=== PATIENT | male | born 1935 | race Caucasian/White ===

== ENCOUNTER 2016-07-02 17:31 | Inpatient (IN) | payer MEDICARE, OTHER ==
[2016-07-02 18:54] LABS: Hematocrit 45 % (42-52); Mean Corpuscular HGB Conc 33 g/dl (31-36); Mean Corpuscular Hemoglobin 31 pg (27-31); Mean Corpuscular Volume 94 fL (80-94); Mean Platelet Volume 9 um3 (7.4-10.4); Red Blood Count 4.84 10^6/ul (4.0-5.4); Red Cell Distribution Width 13 % (10.5-15); White Blood Count 5.2 10^3/ul (3.5-10.8)
--- NOTE | 2016-07-02 19:04 | RAD ---
Indication: LEFT hip and leg pain post fall. Comparison: February 24, 2013 CT. Technique: AP and crosstable lateral views LEFT femur. AP pelvis and AP and crosstable lateral views LEFT hip. Report: Negative for pelvic fracture or joint diastases. The LEFT hip is normally located and demonstrates grossly preserved joint space. Lucencies through the LEFT greater trochanter appear new compared with the 2013 CT and are most consistent with mildly comminuted nondisplaced fracture. No definitive fracture plane extending inferomedial across the intratrochanteric region of the femur. Unremarkable femoral diaphysis and distal condyles. Normal articular alignment at the knee. Unremarkable soft tissue contours. IMPRESSION: The constellation of findings is highly suspicious for a grossly nondisplaced mildly comminuted fracture involving the greater trochanter of the LEFT femur.
[2016-07-02 19:09] LABS: ALT 12 U/L (7-52); AST 16 U/L (13-39); Albumin 3.7 g/dL (3.2-5.2); Alkaline Phosphatase 41 U/L (34-104); Anion Gap 3 mmol/L (2-11); BUN/Creatinine Ratio 19.2 (8-20); Blood Urea Nitrogen 14 mg/dL (6-24); C Reactive Protein < 1.00 mg/L (< 5.00); CO2 Carbon Dioxide 31 mmol/L (22-32); Calcium 9.4 mg/dL (8.6-10.3); Chloride 103 mmol/L (101-111); EGFR Non-African American 103.4 (>60); Globulin 2.4 g/dL (2-4); Glucose 85 mg/dL (70-100); Sodium 137 mmol/L (133-145); Total Protein 6.1 g/dL (6.4-8.9)
[2016-07-02] MEDS ORDERED: Magnesium Hydroxide LIQ* 30 ML UDC PO PRN (19:57)
[2016-07-02] MEDS ORDERED: Docusate CAP* 100 MG PO PRN (19:57)
[2016-07-02] MEDS ORDERED: Morphine INJ* 2 MG/ML 1 ML CARPUJECT IV PRN (19:57)
[2016-07-02] MEDS ORDERED: Al Hydrox/Mg Hydrox/Simet LIQ* 30 ML UDC PO PRN (19:57)
[2016-07-02] MEDS ORDERED: Senna TAB PO PRN (19:57)
--- NOTE | 2016-07-02 21:49 | ED ---
Brandyn Lin Rebecca, scribed for Dennis Crandall MD on 07/02/16 at 1804 . Lower Extremity - HPI Summary HPI Summary: Pt is an 81 y/o M who presents to ED c/o R hip pain s/p mechanical fall. Fall occurred at 1645 and pain began immediately after fall. Pain is discrete to the L hip and is only present when moving. While at rest on stretcher, pt reports no pain. Sx aggravated by movement, alleviated by rest. Denies head trauma. Pt takes 81 mg ASA every day. - History of Current Complaint Chief Complaint: EDHipPelvisInjury Stated Complaint: FALL/PAIN LT HIP,THIGH Time Seen by Provider: 07/02/16 17:58 Hx Obtained From: Patient Mechanism Of Injury: Fall From A Standing Position Onset of Pain: Immediate Onset/Duration: Hours Severity Initially: Moderate Severity Currently: None Pain Intensity: 0 Pain Scale Used: 0-10 Numeric Timing: Intermittent - Only when moving Location: Is Discrete @ - L hip Associated Signs And Symptoms: Positive: Negative Aggravating Factor(s): Movement Alleviating Factor(s): Rest - Allergies/Home Medications Allergies/Adverse Reactions: Allergies Allergy/AdvReac Type Severity Reaction Status Date / Time Sulfa Drugs Allergy Unknown Unknown Verified 07/02/16 17:44 Reaction Details PMH/Surg Hx/FS Hx/Imm Hx Endocrine/Hematology History: Denies: Hx Diabetes, Hx Thyroid Disease Cardiovascular History: Denies: Hx Hypertension, Hx Pacemaker/ICD Respiratory History: Denies: Hx Asthma, Hx Chronic Obstructive Pulmonary Disease (COPD) GI History: Denies: Hx Ulcer Sensory History: Reports: Hx Contacts or Glasses - Pt uses for reading Denies: Hx Hearing Aid Opthamlomology History: Reports: Hx Contacts or Glasses - Pt uses for reading Neurological History: Reports: Hx Dementia, Hx Transient Ischemic Attacks (TIA) - current diagnosis Psychiatric History: Reports: Other Psychiatric Issues/Disorders - Pt has active dementia Denies: Hx Panic Disorder - Surgical History Surgery Procedure, Year, and Place: wrist surgery as a child,APPY,[facility]OST[facility] - Immunization History Date of Tetanus Vaccine: Up to date Date of Influenza Vaccine: Fall 2011 Infectious Disease History: No Infectious Disease History: Denies: Hx Hepatitis, Hx Human Immunodeficiency Virus (HIV), Traveled Outside the [place] in Last 30 Days - Family History Known Family History: Negative: Cardiac Disease, Hypertension, Diabetes - Social History Alcohol Use: Rare Substance Use Type: Reports: None Hx Tobacco Use: No Review of Systems Positive: Arthralgia - L hip pain s/p fall Neurological: Other - Denies head trauma All Other Systems Reviewed And Are Negative: Yes Physical Exam - Summary Physical Exam Summary: VITAL SIGNS: Reviewed. GENERAL: Patient is a well developed and nourished male who is lying comfortable in the stretcher. Patient is not in any acute respiratory distress. HEAD AND FACE: No signs of trauma. No ecchymosis, hematomas or skull depressions. No sinus tenderness. EYES: PERRLA, EOMI x 2, No injected conjunctiva, no nystagmus. EARS: Hearing grossly intact. Ear canals and tympanic membranes are within normal limits. MOUTH: Oropharynx within normal limits. NECK: Supple, trachea is midline, no adenopathy, no JVD, no carotid bruit, no c- spine tenderness, neck with full ROM. CHEST: Symmetric, no tenderness at palpation LUNGS: Clear to auscultation bilaterally. No wheezing or crackles. CVS: Regular rate and rhythm, S1 and S2 present, no murmurs or gallops appreciated. ABDOMEN: Soft, non-tender. No signs of distention. No rebound no guarding, and no masses palpated. Bowel sounds are normal. EXTREMITIES: Decreased ROM in the left hip secondary to pain. No deformity. NEURO: Alert and oriented x 3. No acute neurological deficits. Speech is normal and follows commands. SKIN: Dry and warm Triage Information Reviewed: Yes Vital Signs On Initial Exam: Initial Vitals Temp Pulse Resp BP Pulse Ox 98.2 F 64 16 135/74 100 07/02/16 17:41 07/02/16 17:41 07/02/16 17:41 07/02/16 17:41 07/02/16 17:41 Vital Signs Reviewed: Yes Diagnostics - Vital Signs Vital Signs Temp Pulse Resp BP Pulse Ox 07/02/16 17:41 98.2 F 64 16 135/74 100 - Laboratory Lab Results: Lab Results 07/02/16 07/02/16 Range/Units 18:40 18:40 WBC 5.2 (3.5-10.8) 10^3/ul RBC 4.84 (4.0-5.4) 10^6/ul Hgb 15.0 (14.0-18.0) g/dl Hct 45 (42-52) % MCV 94 (80-94) fL MCH 31 (27-31) pg MCHC 33 (31-36) g/dl RDW 13 (10.5-15) % Plt Count 177 (150-450) 10^3/ul MPV 9 (7.4-10.4) um3 Neut % (Auto) 64.2 (38-83) % Lymph % (Auto) 21.8 L (25-47) % Cotton % (Auto) 9.5 H (1-9) % Eos % (Auto) 3.9 (0-6) % Baso % (Auto) 0.6 (0-2) % Absolute Neuts (auto) 3.3 (1.5-7.7) 10^3/ul Absolute Lymphs (auto) 1.1 (1.0-4.8) 10^3/ul Absolute Monos (auto) 0.5 (0-0.8) 10^3/ul Absolute Eos (auto) 0.2 (0-0.6) 10^3/ul Absolute Basos (auto) 0 (0-0.2) 10^3/ul Absolute Nucleated RBC 0 10^3/ul Nucleated RBC % 0.1 Sodium 137 (133-145) mmol/L Potassium 4.0 (3.5-5.0) mmol/L Chloride 103 (101-111) mmol/L Carbon Dioxide 31 (22-32) mmol/L Anion Gap 3 (2-11) mmol/L BUN 14 (6-24) mg/dL Creatinine 0.73 (0.67-1.17) mg/dL Est GFR ( Amer) 133.0 (>60) Est GFR (Non-Af Amer) 103.4 (>60) BUN/Creatinine Ratio 19.2 (8-20) Glucose 85 (70-100) mg/dL Calcium 9.4 (8.6-10.3) mg/dL Total Bilirubin 0.40 (0.2-1.0) mg/dL AST 16 (13-39) U/L ALT 12 (7-52) U/L Alkaline Phosphatase 41 (34-104) U/L C-Reactive Protein < 1.00 (< 5.00) mg/L Total Protein 6.1 L (6.4-8.9) g/dL Albumin 3.7 (3.2-5.2) g/dL Globulin 2.4 (2-4) g/dL Albumin/Globulin Ratio 1.5 (1-3) Result Diagrams: 07/02/16 18:40 07/02/16 18:40 Lab Statement: Any lab studies that have been ordered have been reviewed, and results considered in the medical decision making process. - Radiology Left femur XR Radiology Interpretation Completed By: Radiologist - The constellation of findings is highly suspicious for a grossly nondisplaced mildly comminuted fracture involving the greater trochanter of the LEFT femur. Hip XR Radiology Interpretation Completed By: Radiologist - The constellation of findings is highly suspicious for a grossly nondisplaced mildly comminuted fracture involving the greater trochanter of the LEFT femur. Lower Extremity Course/Dx - Course Assessment/Plan: 81 y/o M who presents to ED with a CC of an accidental fall. He reports pain in the L hip. He denies any head trauma or neck trauma. Denies any LOC. Test results within normal limits. XR of the L hip shows a positive nondisplaced comminuted fx involved with the greater trochanter of left femur. I discussed the case with Dr. Nicholas and he recommends admission to the medical team. I spoke with Dr. Galvan and she accepted pt for admission. Pt is hemodynamically stable and AxOx3. - Diagnoses Provider Diagnoses: Hip fracture, left - Physician Notifications Discussed Care of Patient With: Dr. Nicholas, orthopedist, who advises pt admission and will consult pt. Dr. Galvan, hosptialist, at 1933 who agrees to admit pt. Time Discussed With Above Provider: 19:15 Discharge - Discharge Plan Condition: Stable Disposition: ADMITTED TO [facility] documentation as recorded by the Brandyn perez Rebecca accurately reflects the service I personally performed and the decisions made by me, Dennis Crandall MD.
[2016-07-02] MEDS: Heparin VIAL(*) 5000 UNITS/ML VIAL (FIVE THOUSAND) SUBCUT SCH (21:54)
[2016-07-02] MEDS: Donepezil TAB* 5 MG PO SCH (22:00)
[2016-07-02] MEDS: CMCS Melatonin (NF) 3 MG TAB PO SCH (22:38)
[2016-07-02] MEDS: Dipyridamole/Aspirin 25/200* CAP.ER PO SCH (22:38)
--- NOTE | 2016-07-03 01:10 | HP ---
HISTORY AND PHYSICAL: DATE OF ADMISSION: 07/02/16 TIME OF EVALUATION: 2000 hours. PRIMARY CARE PHYSICIAN: Lucía Mauricio MD CHIEF COMPLAINT: Left leg pain. HISTORY OF PRESENT ILLNESS: This is an 81-year-old male with an unremarkable past medical history who was out going to walk his dog. They got out of the car and he stumbled off the curb and he fell down on his left side. He was able to get back into the car and they were going to continue to go to walk his dog, but he was unable to walk. The then brought him to the emergency room for further evaluation. The patient states he does not have any pain if he does not move. He denies hitting his head or any other injuries. No loss of consciousness. He does not have any chest pain or shortness of breath. He normally does yoga twice a week. He walks with dog routinely twice a day and he walks stairs. He has 2 flights of stairs going up into his house. In the emergency room, the patient had labs, imaging, and was found to have a greater trochanter left femur fracture. Dr. Nicholas was consulted and he was admitted for further evaluation. In the emergency room, the patient has not received any medications. PAST MEDICAL HISTORY: 1. Alzheimer's dementia, followed by Dr. Palacios. 2. Depression. 3. Sciatica. MEDICATIONS: 1. Namenda 18 mg p.o. daily. 2. Donepezil 5 mg p.o. b.i.d. 3. Aggrenox 25 mg p.o. b.i.d. 4. Vitamin B12 500 mg p.o. daily. 5. Melatonin 3 mg 2 tablets at bedtime. 6. Fish oil 1000 mg p.o. t.i.d. 7. Sertraline in the morning, unclear on the dose. ALLERGIES: SULFA drugs. FAMILY HISTORY: Mother in her 80s from an NV. Father in the 70s from prostate cancer. SOCIAL HISTORY: The patient lives at home with his , Yesenia, who is his health care proxy. 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 No tobacco use. He has 2 grown children. He drinks a glass and half of wine per day. No illicit drug use. REVIEW OF SYSTEMS: As mentioned in the HPI. PHYSICAL EXAMINATION GENERAL: No acute distress, resting comfortable with his at the bedside. VITAL SIGNS: Temp 98.2, pulse rate 61, respiratory rate 16, oxygen saturation 98% on room air, and blood pressure 121/61. HEENT: Pupils equal and reactive. Head is normocephalic. NECK: Supple. No lymphadenopathy. Oropharynx: Mucous membranes are moist. No erythema or exudate. RESPIRATORY: Clear to auscultation. No wheezes, rhonchi, or rales. CARDIAC: Regular rate and rhythm. No murmurs, rubs, or gallops. ABDOMEN: Soft, nontender, and nondistended. EXTREMITIES: No clubbing, cyanosis, or edema; +1 DPs. Extremities are warm. Able to move his toes. He does have some tenderness and some fullness on the left lateral upper leg. NEUROLOGIC: Alert and oriented x2. No focal neurologic deficits other than limited left lower extremity use due to his fracture. DIAGNOSTIC STUDIES/LAB DATA: White count 5.2, hemoglobin 15, hematocrit 45, and platelets 177. Sodium 137, potassium 4, chloride 103, bicarb 31, BUN 14, and creatinine 0.73. CRP less than 1. RADIOGRAPHIC DATA: Femur x-ray: The constellation of findings are suspicious for grossly nondisplaced mildly comminuted fracture involving the greater trochanter of the left femur. Hip and pelvis x-ray: The constellation of findings are highly suspicious for grossly nondisplaced mildly comminuted fracture involving the greater trochanter of the left femur. ASSESSMENT AND PLAN: This is an 81-year-old male with an unremarkable past medical history who had a mechanical fall and has suffered a left greater trochanter fracture. 1. Mildly comminuted fracture involving the greater trochanter of the left femur: Assessment: I spoke with Dr. Nicholas. He states this is a nonoperative injury and that he will require physical therapy, potential rehab, and that he could be weightbearing as tolerated. Plan: We will admit him to short stay, follow up with orthopedics, start him on pain control, bowel regimen, have a PT consult for weightbearing as tolerated , and the is concerned because he has 2 flights of stairs getting into the house that he may need rehab prior to being discharged to home. We will put in a [facility] referral as well as the patient maybe a good candidate for this. 2. Chronic medical problems: Alzheimer's: Continue Namenda and donepezil as well as Aggrenox. 3. Depression: We will continue sertraline at the lowest dose. We will follow up with the pharmacy to determine the appropriate dose that he is on at home. 4. FEN: We will place him on a regular diet. 5. DVT prophylaxis: Scores high risk. Place him on heparin subcu t.i.d. 6. Code status: Full code. TIME SPENT: Greater than 45 minutes was spent doing the history and physical, more than half the time was spent in direct patient contact. CC: Lucía Mauricio MD* [id number]/CPS #: [id number]
[2016-07-03] MEDS: Heparin VIAL(*) 5000 UNITS/ML VIAL (FIVE THOUSAND) SUBCUT SCH ×3 (06:10→23:13)
[2016-07-03] MEDS: oxyCODONE/Acetamin 5/325 MG* TAB PO PRN (06:10)
--- NOTE | 2016-07-03 08:04 | PN ---
Progress Note - Progress Note SOAP: Subjective: [81 y/o male s/p fall 07/02/2016 with non-displaced greater trochanteric fracture. Patient asked questions regarding Yoga was told to avoid until repeat examinations. Pain well controlled, denies N/V. ] Objective: []General- Well appearing, sitting comfortably, NAD MSK: PT pulses 2+ b/l, + equal dorsiflexion, plantarflexion b/l ankles, sensation grossly intact to light touch b/l LE's Vital Signs Temp 99.0 F 07/03/16 07:49 Pulse 67 07/03/16 07:49 Resp 16 07/03/16 07:49 BP 114/60 07/03/16 07:49 Pulse Ox 96 07/03/16 07:49 Intake & Output 07/02/16 07/03/16 07/03/16 18:59 06:59 18:59 Intake Total 200 Output Total 420 Balance -220 Weight 165 lb 14.4 oz 160 lb Intake: Oral 200 Output: Urine 420 Other: Estimated Void Medium Laboratory Results - last 24 hr 07/02/16 07/02/16 18:40 18:40 WBC 5.2 RBC 4.84 Hgb 15.0 Hct 45 MCV 94 MCH 31 MCHC 33 RDW 13 Plt Count 177 MPV 9 Neut % (Auto) 64.2 Lymph % (Auto) 21.8 L Dent % (Auto) 9.5 H Eos % (Auto) 3.9 Baso % (Auto) 0.6 Absolute Neuts (auto) 3.3 Absolute Lymphs (auto) 1.1 Absolute Monos (auto) 0.5 Absolute Eos (auto) 0.2 Absolute Basos (auto) 0 Absolute Nucleated RBC 0 Nucleated RBC % 0.1 Sodium 137 Potassium 4.0 Chloride 103 Carbon Dioxide 31 Anion Gap 3 BUN 14 Creatinine 0.73 Est GFR ( Amer) 133.0 Est GFR (Non-Af Amer) 103.4 BUN/Creatinine Ratio 19.2 Glucose 85 Calcium 9.4 Total Bilirubin 0.40 AST 16 ALT 12 Alkaline Phosphatase 41 C-Reactive Protein < 1.00 Total Protein 6.1 L Albumin 3.7 Globulin 2.4 Albumin/Globulin Ratio 1.5 Active Medications Generic Name Dose Route Start Last Admin Trade Name Freq PRN Reason Stop Dose Admin Acetaminophen 650 mg 07/02/16 19:57 Tylenol Tab* PO Q4H PRN FEVER/PAIN Al Hydrox/Mg Hydrox/Simethicone 30 ml 07/02/16 19:57 Maalox Plus* PO Q6H PRN INDIGESTION Cyanocobalamin 500 mcg 07/03/16 09:00 Vitamin B12 Tab* PO DAILY [facility] Dipyridamole/Aspirin 1 cap.er 07/02/16 21:00 07/02/16 22:38 Aggrenox 25/200* PO 1 cap.er BID [facility] Administration Docusate Sodium 100 mg 07/02/16 19:57 Colace Cap* PO BID PRN CONSTIPATION Donepezil HCl 5 mg 07/02/16 21:00 07/02/16 22:00 Aricept Tab* PO 5 mg BID [facility] Administration Heparin Sodium (Porcine) 5,000 units 07/02/16 22:00 07/03/16 06:10 Heparin Vial(*) SUBCUT 5,000 units Q8HR [facility] Administration Magnesium Hydroxide 30 ml 07/02/16 19:57 Milk Of Magnesia Liq* PO Q4H PRN CONSTIPATION Melatonin 3 mg 07/02/16 21:00 07/02/16 22:38 Melatonin (Nf) PO 3 mg BEDTIME [facility] Administration Memantine 21 mg 07/03/16 09:00 Namenda Xr * PO DAILY [facility] Morphine Sulfate 2 mg 07/02/16 19:57 Morphine Inj (Syringe)* IV Q4H PRN PAIN Oxycodone/Acetaminophen 1 tab 07/02/16 19:57 07/03/16 06:10 Percocet 5/325 Tab* PO 1 tab Q4H PRN Administration Pain Pneumococcal Polyvalent Vaccine 0.5 ml 07/03/16 09:00 Pneumococcal Vac Polyvalent* IM 07/03/16 09:01 .ONCE ONE Senna 1 tab 07/02/16 19:57 Senokot Tab* PO BID PRN CONSTIPATION Sertraline HCl 25 mg 07/03/16 09:00 Zoloft* PO DAILY [facility] Assessment: [81 y/o male s/p fall 07/02/2016 with non-displaced greater trochanteric fracture] Plan: []-Non-displaced greater troch fx- no change from CT- continue PT, pain control. - Follow up with Dr. Nava within 10 days for evaluation - Walking OK, no strenous activities until cleared by DR. Nava, advised against yoga until cleared.
[2016-07-03] MEDS: Cyanocobalamin TAB* 500 MCG PO SCH (08:58)
[2016-07-03] MEDS: Donepezil TAB* 5 MG PO SCH (08:58)
[2016-07-03] MEDS: Dipyridamole/Aspirin 25/200* CAP.ER PO SCH ×2 (08:58→20:27)
[2016-07-03] MEDS ORDERED: Sertraline* 25 MG TAB PO SCH (09:00)
[2016-07-03] MEDS ORDERED: Pneumococcal *Vac Polyvalent 0.5 ML VIAL IM ONE (09:00)
[2016-07-03] MEDS ORDERED: Memantine XR * 7 MG CAP.XR PO SCH ×2 (09:00)
--- NOTE | 2016-07-03 09:02 | RAD ---
Indication: Evaluate left hip fracture. CT of the pelvis was obtained in the axial plane. Sagittal and coronal reconstructed images were obtained. There is a mildly comminuted nondisplaced fracture of the greater trochanter. No significant displacement is noted. No evidence of intertrochanteric fracture line is noted. The femoral head and neck appear unremarkable. There are mild degenerative changes of both hip joints. Pelvic ring is otherwise intact. Degenerative changes of the sacroiliac joint is noted. No pelvic masses are noted. Urinary bladder is otherwise unremarkable. Degenerative changes of lower lumbar spine noted. IMPRESSION: Mildly comminuted nondisplaced fracture of the greater trochanter of the left femur. Degenerative changes of both hip joints are noted.
--- NOTE | 2016-07-03 12:46 | PN ---
Subjective Date of Service: 07/03/16 Interval History: Patient seen and examined at bedside. Pt states that his pain is controlled. Pt' s is concerned about the patient being able to ambulate up the numerous stair to get inside their house. Discussed with Pt the possible need to have short term rehab placement if he is unable to get up stairs. Pt was able to ambulate with PT and assistance. Pt denies fever, chills, shortness of breath, chest discomfort, N/V/D. Primary care provider office has been contact and medications adjusted per PCP list. Family History: Unchanged from Admission Social History: Unchanged from Admission Past Medical History: Unchanged from Admission Objective Active Medications: Acetaminophen (Tylenol Tab*) 650 mg PO Q4H PRN Reason: FEVER/PAIN Al Hydrox/Mg Hydrox/Simethicone (Maalox Plus*) 30 ml PO Q6H PRN Reason: INDIGESTION Cyanocobalamin (Vitamin B12 Tab*) 500 mcg PO DAILY [facility] Dipyridamole/Aspirin (Aggrenox 25/200*) 1 cap.er PO BID [facility] Docusate Sodium (Colace Cap*) 100 mg PO BID PRN Reason: CONSTIPATION Donepezil HCl (Aricept Tab*) 5 mg PO BID [facility] Heparin Sodium (Porcine) (Heparin Vial(*)) 5,000 units SUBCUT Q8HR [facility] Magnesium Hydroxide (Milk Of Magnesia Liq*) 30 ml PO Q4H PRN Reason: CONSTIPATION Melatonin (Melatonin (Nf)) 3 mg PO BEDTIME [facility] Memantine (Namenda Xr *) 21 mg PO DAILY [facility] Morphine Sulfate (Morphine Inj (Syringe)*) 2 mg IV Q4H PRN Reason: PAIN Oxycodone/Acetaminophen (Percocet 5/325 Tab*) 1 tab PO Q4H PRN Reason: Pain Senna (Senokot Tab*) 1 tab PO BID PRN Reason: CONSTIPATION Sertraline HCl (Zoloft*) 25 mg PO DAILY [facility] Vital Signs 07/02/16 07/02/16 07/02/16 20:00 20:30 21:44 Temperature 97.6 F Pulse Rate 64 67 65 Respiratory 20 Rate Blood Pressure 118/63 138/68 138/68 (mmHg) O2 Sat by Pulse 98 96 97 Oximetry 07/02/16 07/02/16 07/03/16 22:28 23:39 03:45 Temperature 97.6 F 98.9 F 98.8 F Pulse Rate 65 68 67 Respiratory 20 12 16 Rate Blood Pressure 138/68 128/69 116/60 (mmHg) O2 Sat by Pulse 97 96 94 Oximetry 07/03/16 07/03/16 07/03/16 06:10 07:49 08:04 Temperature 99.0 F Pulse Rate 67 Respiratory 16 16 16 Rate Blood Pressure 114/60 (mmHg) O2 Sat by Pulse 96 Oximetry 07/03/16 11:15 Temperature 99.0 F Pulse Rate 66 Respiratory 16 Rate Blood Pressure 101/56 (mmHg) O2 Sat by Pulse 97 Oximetry Oxygen Devices in Use Now: None Appearance: NAD, sitting up in a chair. Eyes: No Scleral Icterus, PERRLA Ears/Nose/Mouth/Throat: NL Teeth, Lips, Gums, Mucous Membranes Moist Neck: NL Appearance and Movements; NL JVP, Trachea Midline Respiratory: Symmetrical Chest Expansion and Respiratory Effort, Clear to Auscultation Cardiovascular: NL Sounds; No Murmurs; No JVD, RRR Extremities: No Edema Skin: No Rash or Ulcers Neurological: Alert and Oriented x 3 - , forgetful., NL Muscle Strength and Tone Lines/Tubes/Other Access: Clean, Dry and Intact Peripheral IV - site benign. Nutrition: Taking PO's Result Diagrams: 07/02/16 18:40 07/02/16 18:40 Assess/Plan/Problems-Billing Assessment: Mr. Sorensen is a 81 yo male with an unremarkable past medical history who presented to the emergency room after a mechanical fall, suffering a left greater trochanter fracture. - Patient Problems (1) Intertrochanteric fracture of left femur Code(s): S72.142A - DISPLACED INTERTROCHANTERIC FRACTURE OF LEFT FEMUR, INIT SNOMED Code(s): 849506330 Comment: Non-operative FX. Continue pain control, PT/OT. Pt should avoid abduction of the left hip. WBAT. PMRU consult pending. (2) Alzheimer disease Code(s): G30.9 - ALZHEIMER'S DISEASE, UNSPECIFIED SNOMED Code(s): 84910028 Comment: Continue Namenda, donepezil and aggrenox. (3) Depression Code(s): F32.9 - MAJOR DEPRESSIVE DISORDER, SINGLE EPISODE, UNSPECIFIED SNOMED Code(s): 11942901 Comment: Continue sertraline. (4) DVT prophylaxis Code(s): BQY0938 - SNOMED Code(s): 081818696 Comment: Continue SQ Heparin (5) Full code status Code(s): Z78.9 - OTHER SPECIFIED HEALTH STATUS SNOMED Code(s): 687236547 Status and Disposition: Inpatient. Discharge to home when medically stable.
[2016-07-03] MEDS: CMCS Melatonin (NF) 3 MG TAB PO SCH (20:28)
[2016-07-04] MEDS: Heparin VIAL(*) 5000 UNITS/ML VIAL (FIVE THOUSAND) SUBCUT SCH ×3 (05:49→21:35)
--- NOTE | 2016-07-04 10:09 | PN ---
Progress Note - Progress Note SOAP: Subjective: [Pt doing well. No pain at rest. Has been careful when WB but able to tolerate light pressure on L LE. Denies CP/nausea/ calf pain] Objective: [A and O x3, NAD Sitting in chair L hip with TTP laterally, distal gross motor and NV function intact Vital Signs: Temp Pulse Resp BP Pulse Ox 97.8 F 71 16 122/69 96 07/04/16 07:37 07/04/16 07:37 07/04/16 08:00 07/04/16 07:37 07/04/16 07:37 ] Assessment: [81 you male s/p L hip gr troch fx 07/02/16] Plan: [Con't WBAT LLE PT/OT Possible rehab placement F/U with Dr. Nicholas within 10 days if D/Don]
[2016-07-04] MEDS: Dipyridamole/Aspirin 25/200* CAP.ER PO SCH ×2 (11:11→21:35)
[2016-07-04] MEDS: oxyCODONE/Acetamin 5/325 MG* TAB PO PRN (11:11)
[2016-07-04] MEDS: Cyanocobalamin TAB* 500 MCG PO SCH (11:12)
[2016-07-04] MEDS: Donepezil TAB* 5 MG PO SCH (11:12)
[2016-07-04] MEDS: Memantine XR CAP* 28 MG CAP.XR PO SCH (11:13)
[2016-07-04] MEDS: [UNRECOGNIZED DRUG - OTHER] PO SCH ×2 (11:13→21:36)
[2016-07-04] MEDS: Sertraline* 50 MG TAB PO SCH (11:14)
--- NOTE | 2016-07-04 16:29 | PN ---
Subjective Date of Service: 07/04/16 Interval History: Pt is feeling well. He feels he is getting around better but still not well enough to go home without therapy first. He denies any pain or SOB. Objective Active Medications: Acetaminophen (Tylenol Tab*) 650 mg PO Q4H PRN PRN Reason: FEVER/PAIN Al Hydrox/Mg Hydrox/Simethicone (Maalox Plus*) 30 ml PO Q6H PRN PRN Reason: INDIGESTION Cyanocobalamin (Vitamin B12 Tab*) 500 mcg PO DAILY [facility] Last Admin: 07/04/16 11:12 Dose: 500 mcg Dipyridamole/Aspirin (Aggrenox 25/200*) 1 cap.er PO BID [facility] Last Admin: 07/04/16 11:11 Dose: 1 cap.er Docusate Sodium (Colace Cap*) 100 mg PO BID PRN PRN Reason: CONSTIPATION Donepezil HCl (Aricept Tab*) 10 mg PO DAILY [facility] Last Admin: 07/04/16 11:12 Dose: 10 mg Heparin Sodium (Porcine) (Heparin Vial(*)) 5,000 units SUBCUT Q8HR [facility] Last Admin: 07/04/16 14:00 Dose: 5,000 units Magnesium Hydroxide (Milk Of Magnesia Liq*) 30 ml PO Q4H PRN PRN Reason: CONSTIPATION Melatonin (Melatonin (Nf)) 3 mg PO BEDTIME [facility] Last Admin: 07/03/16 20:28 Dose: 3 mg Memantine (Namenda Xr Cap*) 28 mg PO DAILY [facility] Last Admin: 07/04/16 11:13 Dose: 28 mg Morphine Sulfate (Morphine Inj (Syringe)*) 2 mg IV Q4H PRN PRN Reason: PAIN Pto Nf Med* Ecosmart (Dha Capsules) 1 admin PO BID [facility] Last Admin: 07/04/16 11:13 Dose: 1 admin Oxycodone/Acetaminophen (Percocet 5/325 Tab*) 1 tab PO Q4H PRN PRN Reason: Pain Last Admin: 07/04/16 11:11 Dose: 1 tab Senna (Senokot Tab*) 1 tab PO BID PRN PRN Reason: CONSTIPATION Sertraline HCl (Zoloft*) 50 mg PO DAILY [facility] Last Admin: 07/04/16 11:14 Dose: 50 mg Vital Signs 01/12/1207/03/16 07/03/16 19:46 23:10 23:13 Temperature 97.8 F 98.0 F Pulse Rate 75 66 Respiratory 16 14 14 Rate Blood Pressure 127/60 120/63 (mmHg) O2 Sat by Pulse 96 93 Oximetry 07/04/16 07/04/16 07/04/16 03:58 07:37 08:00 Temperature 97.6 F 97.8 F Pulse Rate 68 71 Respiratory 16 17 16 Rate Blood Pressure 140/71 122/69 (mmHg) O2 Sat by Pulse 97 96 Oximetry 07/04/16 07/04/16 07/04/16 11:11 11:27 13:11 Temperature 98.0 F Pulse Rate 61 Respiratory 16 16 16 Rate Blood Pressure 108/54 (mmHg) O2 Sat by Pulse 97 Oximetry Oxygen Devices in Use Now: None Appearance: Elderly male sitting in a chair, NAD Eyes: No Scleral Icterus Ears/Nose/Mouth/Throat: Mucous Membranes Moist Respiratory: Symmetrical Chest Expansion and Respiratory Effort, Clear to Auscultation Cardiovascular: NL Sounds; No Murmurs; No JVD, RRR, No Edema Abdominal: NL Sounds; No Tenderness; No Distention Extremities: No Clubbing, Cyanosis Skin: No Rash or Ulcers, No Nodules or Sclerosis Neurological: Alert and Oriented x 3 Result Diagrams: 07/02/16 18:40 07/02/16 18:40 Additional Lab and Data: Lab Results 07/02/16 07/02/16 Range/Units 18:40 18:40 WBC 5.2 (3.5-10.8) 10^3/ul RBC 4.84 (4.0-5.4) 10^6/ul Hgb 15.0 (14.0-18.0) g/dl Hct 45 (42-52) % MCV 94 (80-94) fL MCH 31 (27-31) pg MCHC 33 (31-36) g/dl RDW 13 (10.5-15) % Plt Count 177 (150-450) 10^3/ul MPV 9 (7.4-10.4) um3 Neut % (Auto) 64.2 (38-83) % Lymph % (Auto) 21.8 L (25-47) % [place] % (Auto) 9.5 H (1-9) % Eos % (Auto) 3.9 (0-6) % Baso % (Auto) 0.6 (0-2) % Absolute Neuts (auto) 3.3 (1.5-7.7) 10^3/ul Absolute Lymphs (auto) 1.1 (1.0-4.8) 10^3/ul Absolute Monos (auto) 0.5 (0-0.8) 10^3/ul Absolute Eos (auto) 0.2 (0-0.6) 10^3/ul Absolute Basos (auto) 0 (0-0.2) 10^3/ul Absolute Nucleated RBC 0 10^3/ul Nucleated RBC % 0.1 Sodium 137 (133-145) mmol/L Potassium 4.0 (3.5-5.0) mmol/L Chloride 103 (101-111) mmol/L Carbon Dioxide 31 (22-32) mmol/L Anion Gap 3 (2-11) mmol/L BUN 14 (6-24) mg/dL Creatinine 0.73 (0.67-1.17) mg/dL Est GFR ( Amer) 133.0 (>60) Est GFR (Non-Af Amer) 103.4 (>60) BUN/Creatinine Ratio 19.2 (8-20) Glucose 85 (70-100) mg/dL Calcium 9.4 (8.6-10.3) mg/dL Total Bilirubin 0.40 (0.2-1.0) mg/dL AST 16 (13-39) U/L ALT 12 (7-52) U/L Alkaline Phosphatase 41 (34-104) U/L C-Reactive Protein < 1.00 (< 5.00) mg/L Total Protein 6.1 L (6.4-8.9) g/dL Albumin 3.7 (3.2-5.2) g/dL Globulin 2.4 (2-4) g/dL Albumin/Globulin Ratio 1.5 (1-3) Assess/Plan/Problems-Billing Mr. Sorensen is a 81 yo male with an unremarkable past medical history who presented to the emergency room after a mechanical fall, suffering a left greater trochanter fracture. - Patient Problems (1) Intertrochanteric fracture of left femur Current Visit: Yes Status: Acute Code(s): S72.142A - DISPLACED INTERTROCHANTERIC FRACTURE OF LEFT FEMUR, INIT SNOMED Code(s): 744528806 Comment: The patient has a non-operative FX. Continue pain control, PT/OT. Await rehab facility decision. (2) Depression Current Visit: Yes Status: Chronic Code(s): F32.9 - MAJOR DEPRESSIVE DISORDER, SINGLE EPISODE, UNSPECIFIED SNOMED Code(s): 78942567 Comment: Continue sertraline. (3) Alzheimer disease Current Visit: Yes Status: Chronic Code(s): G30.9 - ALZHEIMER'S DISEASE, UNSPECIFIED SNOMED Code(s): 74228544 Comment: Continue Namenda, donepezil and aggrenox. (4) DVT prophylaxis Current Visit: Yes Status: Acute Code(s): [id number] - SNOMED Code(s): 189141631 Comment: SQ heparin (5) Full code status Current Visit: Yes Status: Acute Code(s): Z78.9 - OTHER SPECIFIED HEALTH STATUS SNOMED Code(s): 863398437 Status and Disposition: Inpatient. Discharge to home when medically stable.
[2016-07-04] MEDS: CMCS Melatonin (NF) 3 MG TAB PO SCH (21:35)
[2016-07-05] MEDS: Heparin VIAL(*) 5000 UNITS/ML VIAL (FIVE THOUSAND) SUBCUT SCH ×3 (05:41→22:31)
[2016-07-05 06:36] LABS: Hematocrit 43 % (42-52); Mean Corpuscular HGB Conc 33 g/dl (31-36); Mean Corpuscular Hemoglobin 31 pg (27-31); Mean Corpuscular Volume 94 fL (80-94); Mean Platelet Volume 9 um3 (7.4-10.4); Red Blood Count 4.55 10^6/ul (4.0-5.4); Red Cell Distribution Width 13 % (10.5-15); White Blood Count 5.7 10^3/ul (3.5-10.8)
[2016-07-05] MEDS: [UNRECOGNIZED DRUG - OTHER] PO SCH ×2 (08:09→20:54)
[2016-07-05] MEDS: Dipyridamole/Aspirin 25/200* CAP.ER PO SCH ×2 (08:10→20:54)
[2016-07-05] MEDS: Cyanocobalamin TAB* 500 MCG PO SCH (08:10)
[2016-07-05] MEDS: Sertraline* 50 MG TAB PO SCH (08:10)
[2016-07-05] MEDS: Memantine XR CAP* 28 MG CAP.XR PO SCH (08:10)
[2016-07-05] MEDS: Donepezil TAB* 5 MG PO SCH (08:11)
[2016-07-05] MEDS: Acetaminophen TAB* 325 MG PO PRN ×3 (09:25→18:19)
--- NOTE | 2016-07-05 09:27 | PN ---
Subjective Date of Service: 07/05/16 Interval History: Pt is feeling well. He believes he needs to have a BM now. Last night he walked around the unit without too much difficulty. Objective Active Medications: Acetaminophen (Tylenol Tab*) 650 mg PO Q4H PRN PRN Reason: FEVER/PAIN Al Hydrox/Mg Hydrox/Simethicone (Maalox Plus*) 30 ml PO Q6H PRN PRN Reason: INDIGESTION Cyanocobalamin (Vitamin B12 Tab*) 500 mcg PO DAILY [facility] Last Admin: 07/05/16 08:10 Dose: 500 mcg Dipyridamole/Aspirin (Aggrenox 25/200*) 1 cap.er PO BID [facility] Last Admin: 07/05/16 08:10 Dose: 1 cap.er Docusate Sodium (Colace Cap*) 100 mg PO BID PRN PRN Reason: CONSTIPATION Donepezil HCl (Aricept Tab*) 10 mg PO DAILY [facility] Last Admin: 07/05/16 08:11 Dose: 10 mg Heparin Sodium (Porcine) (Heparin Vial(*)) 5,000 units SUBCUT Q8HR [facility] Last Admin: 07/05/16 05:41 Dose: 5,000 units Magnesium Hydroxide (Milk Of Magnesia Liq*) 30 ml PO Q4H PRN PRN Reason: CONSTIPATION Melatonin (Melatonin (Nf)) 3 mg PO BEDTIME [facility] Last Admin: 07/04/16 21:35 Dose: 3 mg Memantine (Namenda Xr Cap*) 28 mg PO DAILY [facility] Last Admin: 07/05/16 08:10 Dose: 28 mg Morphine Sulfate (Morphine Inj (Syringe)*) 2 mg IV Q4H PRN PRN Reason: PAIN Pto Nf Med* Ecosmart (Dha Capsules) 1 admin PO BID [facility] Last Admin: 07/05/16 08:09 Dose: 1 admin Oxycodone/Acetaminophen (Percocet 5/325 Tab*) 1 tab PO Q4H PRN PRN Reason: Pain Last Admin: 07/04/16 11:11 Dose: 1 tab Senna (Senokot Tab*) 1 tab PO BID PRN PRN Reason: CONSTIPATION Sertraline HCl (Zoloft*) 50 mg PO DAILY [facility] Last Admin: 07/05/16 08:10 Dose: 50 mg Vital Signs 07/04/16 07/04/16 07/04/16 11:11 11:27 13:11 Temperature 98.0 F Pulse Rate 61 Respiratory 16 16 16 Rate Blood Pressure 108/54 (mmHg) O2 Sat by Pulse 97 Oximetry 07/04/16 07/04/16 07/04/16 16:03 20:00 20:59 Temperature 97.8 F 98.3 F Pulse Rate 67 74 Respiratory 16 18 18 Rate Blood Pressure 109/64 131/56 (mmHg) O2 Sat by Pulse 94 96 Oximetry 07/04/16 07/05/16 07/05/16 23:14 04:17 07:24 Temperature 97.8 F 97.9 F 97.7 F Pulse Rate 81 68 74 Respiratory 16 16 16 Rate Blood Pressure 122/59 121/66 111/81 (mmHg) O2 Sat by Pulse 97 98 93 Oximetry 07/05/16 08:00 Temperature Pulse Rate Respiratory 16 Rate Blood Pressure (mmHg) O2 Sat by Pulse Oximetry Oxygen Devices in Use Now: None Appearance: Elderly male sitting up in bed, NAD Eyes: No Scleral Icterus Ears/Nose/Mouth/Throat: Mucous Membranes Moist Respiratory: Symmetrical Chest Expansion and Respiratory Effort, Clear to Auscultation Cardiovascular: NL Sounds; No Murmurs; No JVD, RRR, No Edema Abdominal: NL Sounds; No Tenderness; No Distention Extremities: No Clubbing, Cyanosis Skin: No Rash or Ulcers, No Nodules or Sclerosis Neurological: Alert and Oriented x 3 Result Diagrams: 07/05/16 06:08 07/02/16 18:40 Additional Lab and Data: Lab Results 07/02/16 07/02/16 Range/Units 18:40 18:40 WBC 5.2 (3.5-10.8) 10^3/ul RBC 4.84 (4.0-5.4) 10^6/ul Hgb 15.0 (14.0-18.0) g/dl Hct 45 (42-52) % MCV 94 (80-94) fL MCH 31 (27-31) pg MCHC 33 (31-36) g/dl RDW 13 (10.5-15) % Plt Count 177 (150-450) 10^3/ul MPV 9 (7.4-10.4) um3 Neut % (Auto) 64.2 (38-83) % Lymph % (Auto) 21.8 L (25-47) % [place] % (Auto) 9.5 H (1-9) % Eos % (Auto) 3.9 (0-6) % Baso % (Auto) 0.6 (0-2) % Absolute Neuts (auto) 3.3 (1.5-7.7) 10^3/ul Absolute Lymphs (auto) 1.1 (1.0-4.8) 10^3/ul Absolute Monos (auto) 0.5 (0-0.8) 10^3/ul Absolute Eos (auto) 0.2 (0-0.6) 10^3/ul Absolute Basos (auto) 0 (0-0.2) 10^3/ul Absolute Nucleated RBC 0 10^3/ul Nucleated RBC % 0.1 Sodium 137 (133-145) mmol/L Potassium 4.0 (3.5-5.0) mmol/L Chloride 103 (101-111) mmol/L Carbon Dioxide 31 (22-32) mmol/L Anion Gap 3 (2-11) mmol/L BUN 14 (6-24) mg/dL Creatinine 0.73 (0.67-1.17) mg/dL Est GFR ( Amer) 133.0 (>60) Est GFR (Non-Af Amer) 103.4 (>60) BUN/Creatinine Ratio 19.2 (8-20) Glucose 85 (70-100) mg/dL Calcium 9.4 (8.6-10.3) mg/dL Total Bilirubin 0.40 (0.2-1.0) mg/dL AST 16 (13-39) U/L ALT 12 (7-52) U/L Alkaline Phosphatase 41 (34-104) U/L C-Reactive Protein < 1.00 (< 5.00) mg/L Total Protein 6.1 L (6.4-8.9) g/dL Albumin 3.7 (3.2-5.2) g/dL Globulin 2.4 (2-4) g/dL Albumin/Globulin Ratio 1.5 (1-3) Assess/Plan/Problems-Billing Mr. Sorensen is a 81 yo male with an unremarkable past medical history who presented to the emergency room after a mechanical fall, suffering a left greater trochanter fracture. - Patient Problems (1) Greater trochanter fracture Current Visit: Yes Status: Acute Code(s): S72.113A - DISP FX OF GREATER TROCHANTER OF UNSP FEMUR, INIT SNOMED Code(s): 961712394 Comment: This is a non-operative fracture. Continue pain control, PT/OT. Await rehab facility decision- waiting for his to decide on the top 2 [facility] choices. (2) Depression Current Visit: Yes Status: Chronic Code(s): F32.9 - MAJOR DEPRESSIVE DISORDER, SINGLE EPISODE, UNSPECIFIED SNOMED Code(s): 95598593 Comment: Continue sertraline. (3) Alzheimer disease Current Visit: Yes Status: Chronic Code(s): G30.9 - ALZHEIMER'S DISEASE, UNSPECIFIED SNOMED Code(s): 16540246 Comment: Continue Namenda, donepezil and aggrenox. (4) DVT prophylaxis Current Visit: Yes Status: Acute Code(s): [id number] - SNOMED Code(s): 602375851 Comment: SQ heparin (5) Full code status Current Visit: Yes Status: Acute Code(s): Z78.9 - OTHER SPECIFIED HEALTH STATUS SNOMED Code(s): 408160203 Status and Disposition: Await decision for [facility].
[2016-07-05] MEDS: CMCS Melatonin (NF) 3 MG TAB PO SCH (20:54)
[2016-07-06] MEDS: Heparin VIAL(*) 5000 UNITS/ML VIAL (FIVE THOUSAND) SUBCUT SCH ×3 (05:45→22:30)
[2016-07-06] MEDS: Sertraline* 50 MG TAB PO SCH (08:21)
[2016-07-06] MEDS: Memantine XR CAP* 28 MG CAP.XR PO SCH (08:21)
[2016-07-06] MEDS: Cyanocobalamin TAB* 500 MCG PO SCH (08:21)
[2016-07-06] MEDS: Donepezil TAB* 5 MG PO SCH (08:21)
[2016-07-06] MEDS: Dipyridamole/Aspirin 25/200* CAP.ER PO SCH ×2 (08:21→20:54)
[2016-07-06] MEDS: [UNRECOGNIZED DRUG - OTHER] PO SCH ×2 (08:26→20:54)
--- NOTE | 2016-07-06 15:48 | PN ---
Subjective Date of Service: 07/06/16 Interval History: Pt is feeling well. He denies any pain. No SOB. He did a full flight of stairs today with PT. Objective Active Medications: Acetaminophen (Tylenol Tab*) 650 mg PO Q4H PRN PRN Reason: FEVER/PAIN Last Admin: 07/05/16 18:19 Dose: 650 mg Al Hydrox/Mg Hydrox/Simethicone (Maalox Plus*) 30 ml PO Q6H PRN PRN Reason: INDIGESTION Cyanocobalamin (Vitamin B12 Tab*) 500 mcg PO DAILY [facility] Last Admin: 07/06/16 08:21 Dose: 500 mcg Dipyridamole/Aspirin (Aggrenox 25/200*) 1 cap.er PO BID [facility] Last Admin: 07/06/16 08:21 Dose: 1 cap.er Docusate Sodium (Colace Cap*) 100 mg PO BID PRN PRN Reason: CONSTIPATION Donepezil HCl (Aricept Tab*) 10 mg PO DAILY [facility] Last Admin: 07/06/16 08:21 Dose: 10 mg Heparin Sodium (Porcine) (Heparin Vial(*)) 5,000 units SUBCUT Q8HR [facility] Last Admin: 07/06/16 14:15 Dose: 5,000 units Magnesium Hydroxide (Milk Of Magnesia Liq*) 30 ml PO Q4H PRN PRN Reason: CONSTIPATION Melatonin (Melatonin (Nf)) 3 mg PO BEDTIME [facility] Last Admin: 07/05/16 20:54 Dose: 3 mg Memantine (Namenda Xr Cap*) 28 mg PO DAILY [facility] Last Admin: 07/06/16 08:21 Dose: 28 mg Morphine Sulfate (Morphine Inj (Syringe)*) 2 mg IV Q4H PRN PRN Reason: PAIN Pto Nf Med* Ecosmart (Dha Capsules) 1 admin PO BID [facility] Last Admin: 07/06/16 08:26 Dose: 1 admin Oxycodone/Acetaminophen (Percocet 5/325 Tab*) 1 tab PO Q4H PRN PRN Reason: Pain Last Admin: 07/04/16 11:11 Dose: 1 tab Senna (Senokot Tab*) 1 tab PO BID PRN PRN Reason: CONSTIPATION Sertraline HCl (Zoloft*) 50 mg PO DAILY [facility] Last Admin: 07/06/16 08:21 Dose: 50 mg Vital Signs 07/05/16 07/05/16 07/05/16 15:42 19:28 21:00 Temperature 97.7 F 97.7 F Pulse Rate 63 66 Respiratory 16 12 20 Rate Blood Pressure 115/63 120/59 (mmHg) O2 Sat by Pulse 95 96 Oximetry 07/06/16 07/06/16 07/06/16 00:15 04:24 07:36 Temperature 97.5 F 97.9 F 98.1 F Pulse Rate 75 70 67 Respiratory 16 16 18 Rate Blood Pressure 138/69 114/58 131/71 (mmHg) O2 Sat by Pulse 99 94 95 Oximetry 07/06/16 07/06/16 08:00 12:07 Temperature 98.0 F Pulse Rate 66 Respiratory 18 18 Rate Blood Pressure 123/66 (mmHg) O2 Sat by Pulse 95 Oximetry Oxygen Devices in Use Now: None Appearance: Elderly male sitting in a chair, NAD Eyes: No Scleral Icterus Ears/Nose/Mouth/Throat: Mucous Membranes Moist Respiratory: Symmetrical Chest Expansion and Respiratory Effort, Clear to Auscultation Cardiovascular: NL Sounds; No Murmurs; No JVD, RRR, No Edema Abdominal: NL Sounds; No Tenderness; No Distention Extremities: No Clubbing, Cyanosis Skin: No Rash or Ulcers, No Nodules or Sclerosis Neurological: Alert and Oriented x 3 Result Diagrams: 07/05/16 06:08 07/02/16 18:40 Additional Lab and Data: Lab Results 07/02/16 07/02/16 Range/Units 18:40 18:40 WBC 5.2 (3.5-10.8) 10^3/ul RBC 4.84 (4.0-5.4) 10^6/ul Hgb 15.0 (14.0-18.0) g/dl Hct 45 (42-52) % MCV 94 (80-94) fL MCH 31 (27-31) pg MCHC 33 (31-36) g/dl RDW 13 (10.5-15) % Plt Count 177 (150-450) 10^3/ul MPV 9 (7.4-10.4) um3 Neut % (Auto) 64.2 (38-83) % Lymph % (Auto) 21.8 L (25-47) % [place] % (Auto) 9.5 H (1-9) % Eos % (Auto) 3.9 (0-6) % Baso % (Auto) 0.6 (0-2) % Absolute Neuts (auto) 3.3 (1.5-7.7) 10^3/ul Absolute Lymphs (auto) 1.1 (1.0-4.8) 10^3/ul Absolute Monos (auto) 0.5 (0-0.8) 10^3/ul Absolute Eos (auto) 0.2 (0-0.6) 10^3/ul Absolute Basos (auto) 0 (0-0.2) 10^3/ul Absolute Nucleated RBC 0 10^3/ul Nucleated RBC % 0.1 Sodium 137 (133-145) mmol/L Potassium 4.0 (3.5-5.0) mmol/L Chloride 103 (101-111) mmol/L Carbon Dioxide 31 (22-32) mmol/L Anion Gap 3 (2-11) mmol/L BUN 14 (6-24) mg/dL Creatinine 0.73 (0.67-1.17) mg/dL Est GFR ( Amer) 133.0 (>60) Est GFR (Non-Af Amer) 103.4 (>60) BUN/Creatinine Ratio 19.2 (8-20) Glucose 85 (70-100) mg/dL Calcium 9.4 (8.6-10.3) mg/dL Total Bilirubin 0.40 (0.2-1.0) mg/dL AST 16 (13-39) U/L ALT 12 (7-52) U/L Alkaline Phosphatase 41 (34-104) U/L C-Reactive Protein < 1.00 (< 5.00) mg/L Total Protein 6.1 L (6.4-8.9) g/dL Albumin 3.7 (3.2-5.2) g/dL Globulin 2.4 (2-4) g/dL Albumin/Globulin Ratio 1.5 (1-3) Assess/Plan/Problems-Billing Mr. Sorensen is a 81 yo male with an unremarkable past medical history who presented to the emergency room after a mechanical fall, suffering a left greater trochanter fracture. - Patient Problems (1) Greater trochanter fracture Current Visit: Yes Status: Acute Code(s): S72.113A - DISP FX OF GREATER TROCHANTER OF UNSP FEMUR, INIT SNOMED Code(s): 789412452 Comment: This is a non-operative fracture. Continue pain control, PT/OT. Plan is for pt to go home tomorrow. He will have a hospital bed delivered tomorrow. Will also set up VNS. (2) Depression Current Visit: Yes Status: Chronic Code(s): F32.9 - MAJOR DEPRESSIVE DISORDER, SINGLE EPISODE, UNSPECIFIED SNOMED Code(s): 50376286 Comment: Continue sertraline. (3) Alzheimer disease Current Visit: Yes Status: Chronic Code(s): G30.9 - ALZHEIMER'S DISEASE, UNSPECIFIED SNOMED Code(s): 12337942 Comment: Continue Namenda, donepezil and aggrenox. (4) DVT prophylaxis Current Visit: Yes Status: Acute Code(s): [id number] - SNOMED Code(s): 524541815 Comment: SQ heparin (5) Full code status Current Visit: Yes Status: Acute Code(s): Z78.9 - OTHER SPECIFIED HEALTH STATUS SNOMED Code(s): 559069719 Status and Disposition: d/c home tomorrow
[2016-07-06] MEDS: CMCS Melatonin (NF) 3 MG TAB PO SCH (20:54)
[2016-07-07] MEDS: Heparin VIAL(*) 5000 UNITS/ML VIAL (FIVE THOUSAND) SUBCUT SCH (05:40)
[2016-07-07] MEDS: oxyCODONE/Acetamin 5/325 MG* TAB PO PRN (07:03)
[2016-07-07] MEDS: Cyanocobalamin TAB* 500 MCG PO SCH (09:10)
[2016-07-07] MEDS: Donepezil TAB* 5 MG PO SCH (09:10)
[2016-07-07] MEDS: Dipyridamole/Aspirin 25/200* CAP.ER PO SCH (09:10)
[2016-07-07] MEDS: Memantine XR CAP* 28 MG CAP.XR PO SCH (09:10)
[2016-07-07] MEDS: Sertraline* 50 MG TAB PO SCH (09:10)
[2016-07-07] MEDS: [UNRECOGNIZED DRUG - OTHER] PO SCH (09:14)
--- NOTE | 2016-07-07 10:26 | PN ---
Subjective Date of Service: 07/07/16 Interval History: Pt is feeling well. No pain. He feels ready to go home. Objective Active Medications: Acetaminophen (Tylenol Tab*) 650 mg PO Q4H PRN PRN Reason: FEVER/PAIN Last Admin: 07/05/16 18:19 Dose: 650 mg Al Hydrox/Mg Hydrox/Simethicone (Maalox Plus*) 30 ml PO Q6H PRN PRN Reason: INDIGESTION Cyanocobalamin (Vitamin B12 Tab*) 500 mcg PO DAILY [facility] Last Admin: 07/07/16 09:10 Dose: 500 mcg Dipyridamole/Aspirin (Aggrenox 25/200*) 1 cap.er PO BID [facility] Last Admin: 07/07/16 09:10 Dose: 1 cap.er Docusate Sodium (Colace Cap*) 100 mg PO BID PRN PRN Reason: CONSTIPATION Donepezil HCl (Aricept Tab*) 10 mg PO DAILY [facility] Last Admin: 07/07/16 09:10 Dose: 10 mg Heparin Sodium (Porcine) (Heparin Vial(*)) 5,000 units SUBCUT Q8HR [facility] Last Admin: 07/07/16 05:40 Dose: 5,000 units Magnesium Hydroxide (Milk Of Magnesia Liq*) 30 ml PO Q4H PRN PRN Reason: CONSTIPATION Melatonin (Melatonin (Nf)) 3 mg PO BEDTIME [facility] Last Admin: 07/06/16 20:54 Dose: 3 mg Memantine (Namenda Xr Cap*) 28 mg PO DAILY [facility] Last Admin: 07/07/16 09:10 Dose: 28 mg Morphine Sulfate (Morphine Inj (Syringe)*) 2 mg IV Q4H PRN PRN Reason: PAIN Pto Nf Med* Ecosmart (Dha Capsules) 1 admin PO BID [facility] Last Admin: 07/07/16 09:14 Dose: 1 admin Oxycodone/Acetaminophen (Percocet 5/325 Tab*) 1 tab PO Q4H PRN PRN Reason: Pain Last Admin: 07/07/16 07:03 Dose: 1 tab Senna (Senokot Tab*) 1 tab PO BID PRN PRN Reason: CONSTIPATION Sertraline HCl (Zoloft*) 50 mg PO DAILY [facility] Last Admin: 07/07/16 09:10 Dose: 50 mg Vital Signs 07/06/16 07/06/1617 12:07 15:53 19:59 Temperature 98.0 F 97.8 F 97.8 F Pulse Rate 66 67 73 Respiratory 18 16 16 Rate Blood Pressure 123/66 111/57 126/58 (mmHg) O2 Sat by Pulse 95 97 95 Oximetry 07/06/16 07/06/16 07/07/16 20:45 23:40 03:14 Temperature 97.9 F 98.2 F Pulse Rate 75 73 Respiratory 20 16 16 Rate Blood Pressure 135/70 133/71 (mmHg) O2 Sat by Pulse 98 95 Oximetry 07/07/16 07/07/16 07:03 07:32 Temperature 97.7 F Pulse Rate 63 Respiratory 20 18 Rate Blood Pressure 129/63 (mmHg) O2 Sat by Pulse 98 Oximetry Oxygen Devices in Use Now: None Appearance: Elderly male sitting in a chair, NAD Eyes: No Scleral Icterus Ears/Nose/Mouth/Throat: Mucous Membranes Moist Respiratory: Symmetrical Chest Expansion and Respiratory Effort, Clear to Auscultation Cardiovascular: NL Sounds; No Murmurs; No JVD, RRR, No Edema Abdominal: NL Sounds; No Tenderness; No Distention Extremities: No Clubbing, Cyanosis Skin: No Rash or Ulcers, No Nodules or Sclerosis Neurological: Alert and Oriented x 3 Result Diagrams: 07/05/16 06:08 07/02/16 18:40 Additional Lab and Data: Lab Results 07/02/16 07/02/16 Range/Units 18:40 18:40 WBC 5.2 (3.5-10.8) 10^3/ul RBC 4.84 (4.0-5.4) 10^6/ul Hgb 15.0 (14.0-18.0) g/dl Hct 45 (42-52) % MCV 94 (80-94) fL MCH 31 (27-31) pg MCHC 33 (31-36) g/dl RDW 13 (10.5-15) % Plt Count 177 (150-450) 10^3/ul MPV 9 (7.4-10.4) um3 Neut % (Auto) 64.2 (38-83) % Lymph % (Auto) 21.8 L (25-47) % [place] % (Auto) 9.5 H (1-9) % Eos % (Auto) 3.9 (0-6) % Baso % (Auto) 0.6 (0-2) % Absolute Neuts (auto) 3.3 (1.5-7.7) 10^3/ul Absolute Lymphs (auto) 1.1 (1.0-4.8) 10^3/ul Absolute Monos (auto) 0.5 (0-0.8) 10^3/ul Absolute Eos (auto) 0.2 (0-0.6) 10^3/ul Absolute Basos (auto) 0 (0-0.2) 10^3/ul Absolute Nucleated RBC 0 10^3/ul Nucleated RBC % 0.1 Sodium 137 (133-145) mmol/L Potassium 4.0 (3.5-5.0) mmol/L Chloride 103 (101-111) mmol/L Carbon Dioxide 31 (22-32) mmol/L Anion Gap 3 (2-11) mmol/L BUN 14 (6-24) mg/dL Creatinine 0.73 (0.67-1.17) mg/dL Est GFR ( Amer) 133.0 (>60) Est GFR (Non-Af Amer) 103.4 (>60) BUN/Creatinine Ratio 19.2 (8-20) Glucose 85 (70-100) mg/dL Calcium 9.4 (8.6-10.3) mg/dL Total Bilirubin 0.40 (0.2-1.0) mg/dL AST 16 (13-39) U/L ALT 12 (7-52) U/L Alkaline Phosphatase 41 (34-104) U/L C-Reactive Protein < 1.00 (< 5.00) mg/L Total Protein 6.1 L (6.4-8.9) g/dL Albumin 3.7 (3.2-5.2) g/dL Globulin 2.4 (2-4) g/dL Albumin/Globulin Ratio 1.5 (1-3) Assess/Plan/Problems-Billing Mr. Sorensen is a 81 yo male with an unremarkable past medical history who presented to the emergency room after a mechanical fall, suffering a left greater trochanter fracture. - Patient Problems (1) Greater trochanter fracture Current Visit: Yes Status: Acute Code(s): S72.113A - DISP FX OF GREATER TROCHANTER OF UNSP FEMUR, INIT SNOMED Code(s): 836851505 Comment: Non-operative fracture. Continue pain control- minimal pain at this time. Plan is for pt to go home today with VNS and home PT. (2) Depression Current Visit: Yes Status: Chronic Code(s): F32.9 - MAJOR DEPRESSIVE DISORDER, SINGLE EPISODE, UNSPECIFIED SNOMED Code(s): 66175174 Comment: Continue sertraline. (3) Alzheimer disease Current Visit: Yes Status: Chronic Code(s): G30.9 - ALZHEIMER'S DISEASE, UNSPECIFIED SNOMED Code(s): 88754089 Comment: Continue Namenda, donepezil and aggrenox. (4) DVT prophylaxis Current Visit: Yes Status: Acute Code(s): IAP0351 - SNOMED Code(s): 106403893 Comment: SQ heparin (5) Full code status Current Visit: Yes Status: Acute Code(s): Z78.9 - OTHER SPECIFIED HEALTH STATUS SNOMED Code(s): 342546899 Status and Disposition: d/c home
[2016-07-07 12:19] VITALS: BP 103/51
--- NOTE | 2016-07-08 03:25 | DS ---
DISCHARGE SUMMARY: DATE OF ADMISSION: 07/02/16 DATE OF DISCHARGE: 07/07/16 PRIMARY CARE PROVIDER: Lucía Mauricio M.D. ORTHOPEDIC SURGEON: Demetrius Nicholas MD. PRINCIPAL DIAGNOSIS: Left greater trochanter fracture. SECONDARY DIAGNOSES: 1. Alzheimer's dementia. 2. Depression. 3. Sciatica. DISCHARGE MEDICATIONS: 1. Ibuprofen 200 mg p.o. q. 4 hours p.r.n. pain. 2. Ciclopirox nail lacquer 1 dose topically daily. 3. Vitamin D 1000 units p.o. daily. 4. Sertraline 50 mg p.o. daily. 5. Aggrenox 25/200 one cap p.o. b.i.d. 6. Namenda XR 28 mg p.o. daily. 7. Melatonin 3 mg p.o. q.h.s. 8. Vitamin B12 500 mcg p.o. daily. 9. Aricept 10 mg p.o. q.h.s. 10. [place]-3 fatty acid 1 cap twice daily. 11. Percocet 5/325 mg 1 tab p.o. q. 4 hours p.r.n. pain, dispense 20 tablets, I - STOP was consulted. 12. Acetaminophen 650 mg p.o. q. 4 hours p.r.n. pain. HOSPITAL COURSE: Mr. Sorensen is an 81-year-old male who presented to the emergency room on 07/02/16 with complaints of left leg pain. The patient stumbled off the curb and fell down on to his left side. He was able to get into his car, but he was unable to walk. He was brought to the emergency room for further evaluation. The patient was found to have a fracture of the greater trochanter of the left femur. The patient was admitted to the medical service. The patient has a nonoperative fracture. Dr. Nicholas saw the patient on . At that time, it was recommended that PT and pain control be managed. The patient is to follow up with Dr. Nicholas approximately 10 days after discharge. The patient was asking about doing yoga and it has been recommended that he not do any yoga until he is seen by Dr. Nicholas in followup. The next several days were spent determining whether or not the patient will need subacute rehab as he has several flights of stairs to get into his house. Ultimately, it was determined that the patient was stable for discharge home and was discharged on 07/07/16. VNS and home PT have been set up and additionally I spoke to the patient's about arranging for additional home healthcare. FOLLOWUP CONCERNS: At this time, the patient is stable for discharge home. He is to follow up with Dr. Mauricio on 07/10/16 at 10:[address] Nicholas in the next 1 to 2 weeks, basically about 10 days. CONDITION ON DISCHARGE: Stable. DIET: Regular. ACTIVITY LEVEL: As tolerated. TIME SPENT: Thirty-five minutes were spent discharging this patient. CC: Lucía Mauricio MD; Demetrius Nicholas MD * [id number]/CPS #: [id number] [facility]ERKaylie
== END 2016-07-07 13:35 | disposition home health service (06) | DRG 536 ==
LOC: ED 17:31 → SSU 19:57
PROVIDERS: ADMIT Pediatrics; ATTEND Hospitalist
DX: S72.115A Nondisplaced fracture of greater trochanter of left femur, initial encounter for closed fracture (principal); G30.9 Alzheimer's disease, unspecified; F02.80 Dementia in other diseases classified elsewhere, unspecified severity, without behavioral disturbance, psychotic disturbance, mood disturbance, and anxiety; F32.9 Major depressive disorder, single episode, unspecified; M54.30 Sciatica, unspecified side; Z88.2 Allergy status to sulfonamides; W10.1XXA Fall (on)(from) sidewalk curb, initial encounter; Y93.K1 Activity, walking an animal; Y92.9 Unspecified place or not applicable; Z82.49 Family history of ischemic heart disease and other diseases of the circulatory system; Z80.42 Family history of malignant neoplasm of prostate; Z86.73 Personal history of transient ischemic attack (TIA), and cerebral infarction without residual deficits
CPT/HCPCS: 36415; 72192; 80053; 85025; 85027; 86140; A9270-GY; J1644